=== PATIENT | male | born 1990 | race African-American/Black ===

== ENCOUNTER 2017-12-03 15:03 | Emergency (ER) | payer OTHER ==
[~2017-12-03] VITALS: Ht 190.5 cm; Wt 117.3 kg
[~2017-12-03 15:03] MED LIST: ATROPINE 1100 DROP/5 BOTH EYES; DAILY VALUE1 EACH PO; FLEXERIL10 MG PO; FOLIC ACID1 MG PO; MOTRIN600 MG PO; MOTRIN800 MG PO; MYCOSTATIN 100,60 ML PO; NAPROXEN500 MG PO; PRED FORTE100 DROP/5 BOTH EYES; PREZCOBIX 8001 EACH PO; TRUVADA1 TABLET PO; VITAMIN B-1100 MG PO
[2017-12-03] MEDS ORDERED: MOTRIN600 MG PO (18:23)
[2017-12-03 18:32] VITALS: BP 130/74
== END 2017-12-03 18:38 | disposition home or self-care (01) ==
LOC: EME 15:03
DX: S93.401A Sprain of unspecified ligament of right ankle, initial encounter (principal); X50.9XXA Other and unspecified overexertion or strenuous movements or postures, initial encounter; F17.200 Nicotine dependence, unspecified, uncomplicated
CPT/HCPCS: 73610; 99281; 99283